=== PATIENT | female | born 1990 | race Caucasian/White ===

== ENCOUNTER 2020-02-07 09:58 | Outpatient (CLI) | payer MEDICAID, SELFPAY ==
--- NOTE | 2020-02-07 10:18 | XR_ITS ---
WS: [id number] ANKLE LEFT TECHNIQUE: 3 views of the left ankle CLINICAL INFORMATION: PAIN IN LEFT ANKLE AND JOINTS OF LEFT FOOT COMPARISON: None. FINDINGS: Normal ankle mortise. Talar dome is normal. No visualized fractures. Normal medial and lateral malleo enmanuel. Mild soft tissue edema about the lateral malleolus. XR/XR ankle LT min 3V* [id number] IMPRESSION: Mild soft tissue edema about the lateral malleolus. No visualized fractures..
== END 2020-02-07 09:59 | disposition home or self-care (01) ==
LOC: WPI 10:11
PROVIDERS: Family Provider Family Medicine; Visit Provider Anesthesiology Pain Medicine
DX: M25.572 Pain in left ankle and joints of left foot (principal); R60.0 Localized edema
CPT/HCPCS: 73610

== ENCOUNTER 2020-03-16 15:04 | Emergency (ER) | payer MEDICAID, SELFPAY ==
[2020-03-16 15:05] VITALS: BP 122/76; PULSE 85; RESP 18; TEMP 36.7; O2SAT 96; BMI 29.2
--- NOTE | 2020-03-16 15:06 | XR_ITS ---
WS: [id number] Exam: XR foot RT min 3V* [id number] Date/Time of Exam: 03/16/2020 3:15 PM Reason For Exam: right foot injury No fracture or dislocation. No radiopaque foreign bodies identified. Joint structures are preserved. XR/XR foot RT min 3V* [id number] IMPRESSION: 1. Negative right foot.
--- NOTE | 2020-03-16 15:07 | W.ED.EXTPRO ---
HPI - Extremity Problem General: Chief complaint: Extremity Injury, Lower Stated complaint: R FOOT PAIN/INJURY Time Seen by Provider: 03/16/20 15:05 History of Present Illness: HPI Narrative: Patient is a 29-year-old female comes to the ED after having a right foot injury. Injury occurred last night. Patient dropped a piece of wood on her right foot. She now has some pain when she walks and there is bruising present over her second third and fourth digit right foot. Associated symptoms: Deny chest pain, fever(s) or rash Review of Systems Const: Denies: fever(s), chills or fatigue Eyes: Denies: change in vision or eye discomfort ENMT: Denies: throat pain, odynophagia, nasal discharge or nasal congestion Card: Denies: chest pain, palpitations, edema, swelling of feet/ankles, dyspnea on exertion or orthopnea Resp: Denies: dyspnea, productive cough or non-productive cough GI: Denies: abdominal pain, nausea, vomiting, diarrhea, constipation or hematochezia : Denies: flank pain, dysuria or hematuria Musc: Reports: extremity pain (Right foot.) and extremity swelling (Right foot); Denies: neck pain or back pain Skin/Breast: Denies: rash or new lesions Neuro: Denies: headache(s), numbness in extremities or weakness in extremities Physical Exam Const: COMMON NORMALS: no acute distress, patient oriented x3 and alert GENERAL APPEARANCE: cooperative and comfortable HENMT: COMMON NORMALS: normocephalic HEAD & SCALP: normocephalic MOUTH: Normal oral and palatal mucosa present THROAT: posterior oropharynx normal and uvula midline Eye: COMMON NORMALS: Equal, round and reactive pupils present PUPIL: Yes Equal, round and reactive pupils present Neck/C-Spine: COMMON NORMALS: supple GENERAL: Yes normal visual inspection Resp: COMMON NORMALS: normal respiratory effort, No retractions, No use of accessory muscles and clear to auscultation bilaterally AUSCULTATION: clear to auscultation bilaterally Cardio: COMMON NORMALS: regular rate, regular rhythm, S1 normal heart sound present, S2 normal heart sound present, No gallops present (Cardio), No clicks present (Cardio), No murmurs present (Cardio) and Peripheral pulses 2+ throughout RATE: regular rate RHYTHM: regular rhythm HEART SOUNDS: S1 normal heart sound present and S2 normal heart sound present PERIPHERAL PULSES: Peripheral pulses 2+ throughout GI: COMMON NORMALS: Normal to inspection, nondistended, normoactive bowel sounds present, Soft to palpation, non-tender and no masses PALPATION: Yes Soft to palpation : COMMON NORMALS: Yes no CVA tenderness BLADDER/KIDNEY EXAM: Yes no CVA tenderness Back/Pelvis: COMMON NORMALS: no CVA tenderness Extremity: NARRATIVE EXTREMITY EXAM: Right foot?patient has some ecchymosis and edema in the second third and fourth digit. No wound or visible deformity seen. Tenderness to palpation at the base of second third and fourth digit. Pedal pulse 2+ and neurovascular intact. Patient has full range of motion, but does states she has some discomfort and pain. GENERAL: Yes normal exam except as noted Neuro: COMMON NORMALS: patient oriented x3 and moves all extremities SENSORIUM/ORIENTATION: Yes alert Skin: GENERAL SKIN EXAM: dry skin Course Vital Signs: Vital signs: Vital Signs Temperature 98.1 F 03/16/20 15:05 Pulse Rate 72 03/16/20 15:54 Respiratory Rate 18 03/16/20 15:05 Blood Pressure 116/74 03/16/20 15:54 Pulse Oximetry 97 03/16/20 15:54 MDM - Extremity (Nontraumatic) MDM Narrative: Medical decision making narrative: Patient is a 29-year-old female comes to the ED with right foot pain after dropping a heavy piece of wart on foot. Exam shows some edema and ecchymosis around the base of the second third and fourth digit right foot. Patient is able to bear weight and has full range of motion. X-ray of right foot shows no acute fractures or findings. Patient was discharged and told to rest, ice and elevate right foot. Take [id number] ibuprofen for pain. ER return to ED precautions given. Follow-up with PCP in 7 to 10 days. Patient understood and agreed with plan. Imaging Data^: Xray Ortho: Attestation: I personally reviewed and interpreted this imaging study as follows: Radiologist's impression: [address] [place] [address] XRay Report Signed Patient: Fanny Gimenez Unit #: [id number] : 1990 Age/Sex: 29 / F ADM Date: 03/16/20 Loc: ER Room/Bed: Attending Dr: Ordering Provider/Ordering MD: Jeferson Landrum Date of Service: 03/16/20 Procedure(s): XR foot RT min 3V* [id number] Accession Number(s): [id number] Report Number: [id number] WS: [id number] Exam: XR foot RT min 3V* [id number] Date/Time of Exam: 03/16/2020 3:15 PM Reason For Exam: right foot injury No fracture or dislocation. No radiopaque foreign bodies identified. Joint structures are preserved. XR/XR foot RT min 3V* [id number] IMPRESSION: 1. Negative right foot. Dictated By: Sam Hunter DO Signed By: Sam Hunter DO Signed Date/Time: 03/16/201529 DD/ 1529 Discharge Plan Discharge Patient Disposition: Home Clinical Impression: Contusion of right foot Qualifiers: Encounter type: initial encounter Qualified Code(s): S90.31XA - Contusion of right foot, initial encounter Condition: Stable Prescriptions: No Action hydrocodone-acetaminophen 10-325 mg tablet 1 tab PO TID PRN (Reason: Pain) RF: 0 Tylenol Extra Strength 500 mg Tablet 1,000 mg PO PRN RF: 0 Discharge Orders: Discharge Order (Routine); Ordered 03/16/20 Ordered By: Jeferson Landrum Referrals: Jose F Rausch MD [Primary Care Provider] - Discharge Diet: Regular Discharge Activity: Increase activity as tolerated Activity Restrictions/Additional Instructions: Follow-up with medical provider as directed in the next 7 to 10 days. Rest, ice and elevate right foot to help with symptoms. Take [id number] ibuprofen or Tylenol for pain. Return to the ER or your medical provider if condition worsens. Please read and understand discharge instructions. If any questions, please ask. Coding Level of Care Code ED Ux Design Lead for Chg Fwd Exam Comprehensive
[2020-03-16 15:54] VITALS: BP 116/74; PULSE 72; O2SAT 97
== END 2020-03-16 15:54 | disposition home or self-care (01) ==
PROVIDERS: Emergency Provider Physician Assistant; PCP Family Medicine
DX: S90.31XA Contusion of right foot, initial encounter (principal); W20.8XXA Other cause of strike by thrown, projected or falling object, initial encounter
CPT/HCPCS: 12345; 73630; 99281; 99282

== ENCOUNTER → 2023-01-28 09:13 | Outpatient (BNVA) | payer MEDICAID, SELFPAY | PROVIDERS: PCP Family Medicine; Referring Provider Registered Nurse; Visit Provider Physician Assistant | DX: M54.50 Low back pain, unspecified (principal) | CPT/HCPCS: 72110 ==

== ENCOUNTER → 2023-04-08 08:09 | Outpatient (BNVA) | payer MEDICAID, SELFPAY | PROVIDERS: PCP Family Medicine; Visit Provider Physician Assistant | DX: M47.26 Other spondylosis with radiculopathy, lumbar region (principal); M47.818 Spondylosis without myelopathy or radiculopathy, sacral and sacrococcygeal region | CPT/HCPCS: 72110 ==

== ENCOUNTER 2023-05-01 10:02 | Outpatient (CLI) | payer MEDICAID, SELFPAY ==
--- NOTE | 2023-05-01 10:15 | MR_ITS ---
WS: [id number] MRI LUMBAR SPINE NONCONTRAST TECHNIQUE: Sagittal T1, T2 and STIR imaging. Axial T1 and T2 imaging. CLINICAL INFORMATION: low back pain COMPARISON: None. FINDINGS: Mild lumbar curve. No acute compression. No high-grade central canal stenosis. L1-L2: Mild facet arthropathy. Spinal canal and foramen are patent. L2-L3: Mild facet arthropathy. Spinal canal and foramen are patent. L3-L4: No significant disc bulging. Mild facet arthropathy. Mild LEFT foraminal narrowing with a tiny LEFT foraminal protrusion. L4-L5: Mild annular bulging with some impingement traversing L5 nerve roots LEFT greater than RIGHT. Mild LEFT greater than RIGHT foraminal narrowing. Mild facet arthropathy. L5-S1: Minimal annular bulging. Moderate facet arthropathy. Spinal canal and foramen are patent. Visualized pelvic bony structures: Normal. Paravertebral soft tissues: Normal. Retroverted and retroflexed uterus. Shallow disc protrusions in the cervical spine on ironing machine operator imaging more prominent C5-6. IMPRESSION: 1. Mild lumbar curve. No acute compression. No high-grade central canal stenosis. 2. Mild annular bulge L4-5 with slight narrowing of the LEFT greater than RIGHT subarticular recess. Slight impingement traversing LEFT L5 nerve root. Moderate facet arthropathy. 3. Mild LEFT L3-4 foraminal narrowing with a tiny LEFT foraminal protrusion. 4. Moderate facet arthropathy L4-L5 and L5-S1.
== END 2023-05-01 10:03 | disposition home or self-care (01) ==
LOC: RAD 10:02
PROVIDERS: PCP Registered Nurse; Visit Provider Physician Assistant
DX: M47.26 Other spondylosis with radiculopathy, lumbar region (principal); M47.897 Other spondylosis, lumbosacral region; M48.061 Spinal stenosis, lumbar region without neurogenic claudication; M46.1 Sacroiliitis, not elsewhere classified; M51.16 Intervertebral disc disorders with radiculopathy, lumbar region
CPT/HCPCS: 72148

== ENCOUNTER → 2023-06-19 11:06 | Outpatient (BNVA) | payer MEDICAID, SELFPAY | PROVIDERS: PCP Registered Nurse; Visit Provider Nurse Practitioner | DX: N93.9 Abnormal uterine and vaginal bleeding, unspecified (principal) | CPT/HCPCS: 81000; 85018 ==

== ENCOUNTER → 2023-07-16 11:04 | Outpatient (BNVA) | payer MEDICAID, SELFPAY | PROVIDERS: PCP Registered Nurse; Visit Provider Obstetrics & Gynecology | DX: N92.6 Irregular menstruation, unspecified (principal) | CPT/HCPCS: 76830 ==

== ENCOUNTER → 2023-07-29 15:28 | Outpatient (BNVA) | payer MEDICAID, SELFPAY | PROVIDERS: PCP Registered Nurse; Visit Provider Obstetrics & Gynecology | DX: Z01.419 Encounter for gynecological examination (general) (routine) without abnormal findings (principal); Z30.9 Encounter for contraceptive management, unspecified | CPT/HCPCS: 87624 ==

== ENCOUNTER → 2023-12-25 09:50 | Outpatient (BNVA) | payer MEDICAID, SELFPAY | PROVIDERS: PCP Registered Nurse; Visit Provider Nurse Practitioner Family | DX: R09.81 Nasal congestion (principal) | CPT/HCPCS: 87426 ==

== ENCOUNTER → 2025-03-30 13:41 | Outpatient (BNVA) | payer MEDICAID, SELFPAY | PROVIDERS: PCP Registered Nurse; Visit Provider Obstetrics & Gynecology | DX: R10.20 Pelvic and perineal pain unspecified side (principal) | CPT/HCPCS: 81000 ==